=== PATIENT | male | born 1975 | race Caucasian/White ===

== ENCOUNTER 2020-03-27 00:17 | Emergency (ER) | payer MEDICAID ==
[~2020-03-27] VITALS: Ht 170.2 cm; Wt 63.5 kg
[2020-03-27 00:35] VITALS: Ht 170.2 cm; Wt 63.5 kg
[2020-03-27 01:58] VITALS: BP 120/85
== END 2020-03-27 01:58 | disposition home or self-care (01) ==
LOC: ED 00:17
DX: S93.401A Sprain of unspecified ligament of right ankle, initial encounter (principal); S50.312A Abrasion of left elbow, initial encounter; S90.811A Abrasion, right foot, initial encounter; V23.4XXA Motorcycle driver injured in collision with car, pick-up truck or van in traffic accident, initial encounter; Y93.55 Activity, bike riding; Y92.488 Other paved roadways as the place of occurrence of the external cause; Y99.8 Other external cause status
CPT/HCPCS: 90715; Q0092